=== PATIENT | female | born 1975 | race Caucasian/White ===

== ENCOUNTER → 2021-04-05 | Outpatient (CLI) | payer OTHER | LOC: RAD 10:43 | DX: M54.2 Cervicalgia (principal); M47.812 Spondylosis without myelopathy or radiculopathy, cervical region | CPT/HCPCS: 72040 ==

== ENCOUNTER → 2021-04-11 | Outpatient (CLI) | payer OTHER | LOC: RAD 10:11 | DX: M25.571 Pain in right ankle and joints of right foot (principal); R93.7 Abnormal findings on diagnostic imaging of other parts of musculoskeletal system | CPT/HCPCS: 73610; 73630 ==

== ENCOUNTER → 2021-04-25 | Outpatient (CLI) | payer OTHER ==
[2021-04-25 16:26] LABS: HEMOGLOBIN 12.2 gm/dl (12.3-15.3); RED BLOOD COUNT 5.03 M/UL (4.00-5.10); WHITE BLOOD COUNT 5.2 K/UL (4.5-11.0)
[2021-04-25 17:29] LABS: BUN/CREATININE RATIO 11 (0-10)
[2021-04-27 09:14] LABS: THYROXINE (T4) 8.2 ug/dL (4.5-12.0)
== END ==
LOC: LAB 12:39
PROVIDERS: Nurse Practitioner Family
DX: F41.1 Generalized anxiety disorder (principal); R53.82 Chronic fatigue, unspecified
CPT/HCPCS: 36415; 80053; 80061; 84436; 84443; 84480; 85025

== ENCOUNTER → 2021-04-29 | Outpatient (CLI) | payer OTHER | LOC: LAB 15:07 | DX: F41.1 Generalized anxiety disorder (principal); R53.82 Chronic fatigue, unspecified | CPT/HCPCS: 36415; 81001 ==